=== PATIENT | female | born 1965 | race Caucasian/White ===

== ENCOUNTER 2019-01-21 07:01 | Day surgery (SDC) | payer BC ==
[~2019-01-21] VITALS: Ht 170.2 cm; Wt 140.6 kg
[~2019-01-21 07:01] MED LIST: AMLODIPINE BESY10 MG PO; ARAVA20 MG PO; HYDROCHLOROTHIA25 MG PO; LOSARTAN POTASS50 MG PO; SINGULAIR10 MG PO
[2019-01-21] MEDS ORDERED: AZULFIDINE500 MG PO (07:16)
[2019-01-21] MEDS ORDERED: ALLER-TEC10 MG PO (07:17)
--- NOTE | 2019-01-21 09:07 | NUR ---
01/21/19 0907 Mindi Grarido 0634 PT ARRIVED IN PACU AWAKE WITH NO C/O'S. ABD SOFT. 0900 SITTING UP IN BED SIPPING ON WATER. 904 PT DRESSED. DC INSTRUCTIONS GIVEN.
--- NOTE | 2019-01-22 07:27 | OR ---
[facility] [address], [place] [address] Signed DATE OF OPERATION: 01/21/2019 SURGEON: Ramez Burns MD PREOPERATIVE DIAGNOSES: 1. Screening. 2. Hemorrhoids. POSTOPERATIVE DIAGNOSES: 1. A 6 mm polyp at 35 cm (snare). 2. 4 mm polyps at 8 and 5 cm. 3. Minimal sigmoid diverticulosis. 4. Btytiaf-ed-epyucefo internal hemorrhoids. PROCEDURE: Colonoscopy with snare polypectomy and hot biopsy. ESTIMATED BLOOD LOSS: None. INDICATIONS: Jalen is a 53-year-old female at 5 feet 7 inches, 210 pounds with a body mass index of 48. She has very full neck and history of sleep apnea. She also has rheumatoid arthritis and had both her knees replaced. She was asked to see me for her initial screening colonoscopy. She describes some hemorrhoids, but otherwise no lower GI complaints. There is no family history of colon cancer or polyps. In the office, I gave her a pamphlet on colonoscopy. We looked at that together along with the risks including, but not limited to gas, bloating, crampy abdominal pain, bleeding, perforation requiring surgery, and missed diagnosis. We also discussed the need for IV conscious sedation. She had expressed understanding and wished to proceed. PROCEDURE NOTE: Jalen was taken into our endoscopy suite and placed in the left lateral decubitus position. She was given IV antibiotics due to her bilateral knee replacements. She was given divided doses of 9 mg of Versed and 150 mcg of fentanyl to cover the case. She was slightly awake a couple of times during the test and we gave her additional sedation. We had to balance that out with her airway and her O2 saturation and CO2 levels. A digital rectal exam had been performed and this was unremarkable. The adult colonoscope was introduced and advanced all around into the cecum under direct visualization of camera. It took some extra sedation to get down the right colon into Electronically Signed By: RAMEZ BURNS MD 01/22/19 0727 PATIENT NAME: JALEN SPANGLER OPERATIVE REPORT DATE OF : 67 REPORT #: [id number] PHYSICIAN: RAMEZ BURNS MD PCP: CHEYENNE MESSINA MD REPORT IS CONFIDENTIAL AND NOT TO BE RELEASED WITHOUT AUTHORIZATION [facility] [address], [place] [address] Signed the cecum itself. Her prep was good. We could easily see the appendiceal orifice and the ileocecal valve. We took pictures throughout for photodocumentation. We used our snare to remove the polyp at 35 cm. The base of that was removed with the help of hot biopsy forceps as well. The other polyps were easily removed with the help of a hot biopsy forceps. We saw just a couple of tiny diverticula in the sigmoid colon. Upon retroflexion of the scope, we could see that she does have some [id number] internal hemorrhoid tissues with very tiny internal anal skin tags. After this, the gas was suctioned out and the colonoscope removed. Jalen tolerated the procedure quite well. RECOMMENDATIONS: I will see Jalen back in my office in 7 to 14 days to review her results. If she has a recall of the procedure, she will do better with propofol in the future, particularly given her history of obstructive sleep apnea. Ramez Burns MD ALB/MODL /[id number] cc: MD Cheyenne Hua MD Copies: RAMEZ BURNS MD ~ Electronically Signed By: RAMEZ BURNS MD 01/22/19 0727 PATIENT NAME: JALEN SPANGLER OPERATIVE REPORT DATE OF : 67 REPORT #: [id number] PHYSICIAN: RAMEZ BURNS MD PCP: CHEYENNE MESSINA MD REPORT IS CONFIDENTIAL AND NOT TO BE RELEASED WITHOUT AUTHORIZATION
--- NOTE | 2019-01-24 14:05 | PATH ---
[facility] [address], [place] [address] Signed SPECIMEN(S): A POLYP AT 35 CM SPECIMEN(S): B POLYP BASE AT 35 CM SPECIMEN(S): C POLYP AT 8 CM SPECIMEN SOURCE: A. POLYP AT 35 CM B. POLYP BASE AT 35 CM C. POLYP AT 8 CM CLINICAL HISTORY: Hemorrhoids. Post Op: Polyps, internal hemorrhoids, minimal diverticulosis. MICROSCOPIC DESCRIPTION: Histologic sections of all submitted blocks are examined by light microscopy. These findings, together with the gross examination, support the pathologic diagnosis. FINAL PATHOLOGIC DIAGNOSIS: A. Colon, polyp at 35 cm, polypectomy: - Fragments of tubular adenoma. - No high-grade dysplasia or malignancy. B. Colon, polyp base at 35 cm, polypectomy: - Benign colonic mucosa with cautery artifact. - No dysplasia or malignancy identified. C. Colon, polyp at 8 cm, polypectomy: - Fragments of hyperplastic polyp. - No dysplasia or malignancy identified. NAL:cml:C2NR GROSS DESCRIPTION: Thee specimens are received in three containers, labeled "KF." A. The specimen, labeled "KF, colon polyp at 35 cm," is received in formalin and consists of multiple cobb-white soft tissue fragments, aggregating to 1.0- x 0.5 x 0.3 cm. The specimen is entirely submitted in cassette (A1). B. The specimen, labeled "KF, colon polyp base at 35 cm," is received in formalin and consists of a 0.3 cm in greatest dimension, irregular, cobb-white soft tissue fragment. The specimen is entirely submitted in cassette (B1). C. The specimen, labeled "KF, colon polyp at 8 cm," is received in formalin and consists of three cobb-white soft tissue fragments, ranging from 0.3-0.5 cm in greatest dimension. The specimen is PATIENT NAME: JALEN SPANGLER PATHOLOGY DATE OF : 67 REPORT #: [id number] PHYSICIAN: CHANA GONZALEZ PCP: VÍCTOR MESSINA MD REPORT IS CONFIDENTIAL AND NOT TO BE RELEASED WITHOUT AUTHORIZATION [facility] [address], [place] [address] Signed entirely submitted in cassette (C1). AR (under the direct supervision of a pathologist). The Gross Description was prepared using a voice recognition system. The report was reviewed for accuracy; however, sound-alike word errors, addition and/or deletions may occur. If there is any question about this report, please contact Client Services. PERFORMING LABORATORY: The technical component was performed by [facility], [address] [place] [id number] (Carpet Installer Helper: Delmi Multani MD; CLIA# [id number]). Professional interpretation was performed by [facility], [facility], [address] [place], [place] [address] (CLIA# [id number]). Diagnostician: Gin Arreola MD Pathologist Electronically Signed 01/24/2019 Copies: ~ PATIENT NAME: JALEN SPANGLER PATHOLOGY DATE OF : 67 REPORT #: [id number] PHYSICIAN: CHANA GONZALEZ PCP: VÍCTOR MESSINA MD REPORT IS CONFIDENTIAL AND NOT TO BE RELEASED WITHOUT AUTHORIZATION
== END 2019-01-21 09:10 | disposition home or self-care (01) ==
LOC: DS 07:01 → OPS 07:01 → DS 08:15 → OPS 09:10
PROVIDERS: Colon & Rectal Surgery
PROC: 0DBE8ZZ Excision of Large Intestine, Via Natural or Artificial Opening Endoscopic (ICD-10-PCS; principal; 2019-01-21 08:15)
DX: Z12.11 Encounter for screening for malignant neoplasm of colon (principal); D12.6 Benign neoplasm of colon, unspecified; K63.5 Polyp of colon; K64.8 Other hemorrhoids; K57.30 Diverticulosis of large intestine without perforation or abscess without bleeding; Z88.0 Allergy status to penicillin; Z79.899 Other long term (current) drug therapy
CPT/HCPCS: 99153; G0500; J2250; J3010; J3490; J7120